=== PATIENT | female | born 1940 | race Caucasian/White ===

== ENCOUNTER 2016-11-17 14:38 | Emergency (ER) | payer MEDICARE, OTHER ==
[~2016-11-17 14:38] MED LIST: ASPIRIN EC81 MG PO; CATAPRES 0.1MG0.1 MG PO; CEFTIN500 MG PO; FENOFIBRATE145 MG PO; FERROUS SULFAT325 M1 PO; FLEXERIL 10 MG10 MG PO; FOLIC ACID 1 MG1 MG PO; GLUCOPHAGE 500500 MG PO; HYDRALAZINE HCL50 MG PO; ISOSORBIDE MONO60 MG PO; KLONOPIN TAB 00.5 MG PO; LEVEMIR FL100 UNIT/1 SQ; LEVOTHYROXINE125 MCG PO; LIPITOR TAB 2020 MG PO; MAG-OX 400 TAB400 MG PO; MELATONIN5 M2 PO; MIRALAX PACK 171 PKT PO; MIRALAX17 GM PO; MIRAPEX0.25 MG PO; NEURONTIN 300300 MG PO; NITROSTAT0.4 MG SL; NORVASC 5 MG TAB5 MG PO; NOVOLOG FL100 UNIT/1 SQ; OXYCODONE HCL5 MG PO; PANTOPRAZOLE SO40 MG PO; PRAVASTATIN SOD40 MG PO; PREMARIN0.9 MG PO; RANEXA500 MG PO; ROPINIROLE HCL0.5 MG PO; SENOKOT-S TABL1 EACH PO; SPIRONOLACTONE25 MG PO; TOPROL XL100 MG PO; VANCOCIN IV; VITAMIN B-1000 MCG/M IM; VITAMIN D 40400 UNIT PO; ZESTRIL5 MG PO
[2016-11-17 15:41] LABS: RED BLOOD COUNT 2.79 M/UL (4.00-5.10); WHITE BLOOD COUNT 8.3 K/UL (4.5-11.0)
[2017-04-17] MEDS ORDERED: LORTAB 5-325 M1 EACH PO (02:52)
[2017-04-17] MEDS ORDERED: DITROPAN XL10 MG PO (02:52)
[2017-04-17] MEDS ORDERED: LIORESAL TAB 1010 MG PO (02:56)
[2017-04-17] MEDS ORDERED: DULOXETINE HCL60 MG PO (02:56)
[2017-04-17] MEDS ORDERED: FOLIC ACID1 MG PO (02:56)
[2017-04-17] MEDS ORDERED: SINGULAIR10 MG PO (02:57)
[2017-04-17] MEDS ORDERED: KLONOPIN TAB 00.5 MG PO (02:58)
[2017-04-17] MEDS ORDERED: FERROUS SULFAT325 MG PO (02:58)
[2017-04-17] MEDS ORDERED: [UNRECOGNIZED DRUG - OTHER] MC (02:58)
[2017-04-19] MEDS ORDERED: ASPIRIN EC81 MG PO (16:02)
[2017-04-19] MEDS ORDERED: LIPITOR TAB 2020 MG PO (16:03)
[2017-04-19] MEDS ORDERED: KEFLEX500 MG PO (16:08)
[2017-05-13] MEDS ORDERED: NOVOLOG FL100 UNIT/1 SQ (11:27)
[2017-05-13] MEDS ORDERED: RANITIDINE HCL300 MG PO (11:28)
[2017-05-13] MEDS ORDERED: METOPROLOL SUCC25 MG PO (11:28)
[2017-05-13] MEDS ORDERED: CLARITIN10 M2 PO (11:29)
[2017-05-13] MEDS ORDERED: NITROGLYCERIN0.4 MG SL (11:29)
[2017-05-13] MEDS ORDERED: AMLODIPINE BESYL5 MG PO (11:30)
[2017-05-13] MEDS ORDERED: ALBUTEROL2.5 MG/3 M INH (11:31)
[2017-05-13] MEDS ORDERED: VITAMIN B-1000 MCG/M IM (11:31)
== END 2016-11-17 18:25 | disposition home or self-care (01) ==
LOC: ER1 14:38
PROVIDERS: Emergency Medicine
DX: M25.512 Pain in left shoulder (principal); M54.2 Cervicalgia; D64.9 Anemia, unspecified; I10 Essential (primary) hypertension; J44.9 Chronic obstructive pulmonary disease, unspecified; E11.9 Type 2 diabetes mellitus without complications; Z88.8 Allergy status to other drugs, medicaments and biological substances; Z88.2 Allergy status to sulfonamides; Z88.5 Allergy status to narcotic agent
CPT/HCPCS: 36415; 71010; 80053; 82550; 82553; 83874; 84484; 85025; 93005; 94664; 99284; J0696; J7050